=== PATIENT | female | born 1990 | race Caucasian/White ===

== ENCOUNTER 2022-07-16 08:23 | Emergency (ER) | payer SELFPAY ==
[~2022-07-16] VITALS: Ht 160 cm; Wt 6.8 kg
[2022-07-16 08:25] VITALS: BP_SYST 124
[2022-07-16] MEDS: LORazepam 1 MG TABLET PO ONE (08:47)
[2022-07-16 09:01] VITALS: BP_SYST 111
== END 2022-07-16 09:20 | disposition home or self-care (01) ==
LOC: SED 08:23
DX: F41.9 Anxiety disorder, unspecified (principal); Z88.0 Allergy status to penicillin; Z88.1 Allergy status to other antibiotic agents
CPT/HCPCS: 93005; 99283